=== PATIENT | male | born 1995 | race Caucasian/White ===

== ENCOUNTER 2020-02-05 12:30 | Emergency (ER) | payer OTHER, SELFPAY ==
[2020-02-05 12:40] VITALS: BP 146/93; PULSE 76; RESP 16; TEMP 36.6; O2SAT 100; BMI 29.7
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
--- NOTE | 2020-02-05 13:50 | PC.NURSE ---
Lac irrigated with 300ml sterile water and suture tray set up at bedside
[2020-02-05] MEDS: LIDO 1%/SOD BICARB 8.4% (10ML) 10 ML SYRINGE INJ (13:54)
[2020-02-05] MEDS: BACITRACIN OINT 0.9 GM PCKT 1 APPLIC TOP (14:40)
== END 2020-02-05 14:44 | disposition home or self-care (01) ==
PROVIDERS: Emergency Provider Student in an Organized Health Care Education/Training Program
DX: S01.81XA Laceration without foreign body of other part of head, initial encounter (principal); W22.8XXA Striking against or struck by other objects, initial encounter
CPT/HCPCS: 12011; 99283

== ENCOUNTER 2020-04-30 23:01 | Emergency (ER) | payer OTHER, SELFPAY ==
[2020-04-30 23:05] VITALS: BP 156/92; PULSE 77; RESP 18; TEMP 36.9; O2SAT 99
[2020-04-30] MEDS: PROPARACAINE 0.5% OPHTH SOL 1 DROPS EYE-RIGHT (23:11)
[2020-04-30] MEDS: FLUORESCEIN 1 MG STRIP EYE-RIGHT (23:11)
--- NOTE | 2020-04-30 23:11 | ED.EYEPROB ---
HPI - Eye Problem General Chief complaint: Eye Problems Stated complaint: RIGHT EYE SWELLING Time Seen by Provider: 04/30/20 23:02 Source: patient Mode of arrival: Ambulatory Limitations: no limitations History of Present Illness HPI Narrative: 24M daily smoker with noncontributory medical history presents with a chief complaint of relatively sudden onset right eye irritation followed by swelling of the upper lid. He denies any injury or history of the same. He does not wear contacts. He denies any recent welding, exposure to UV light or other. He has not been ill and denies runny nose, sneezing, cough. He denies any change in vision. He complains more of irritation tahn pain and states it does not feel deep. He tried to look for a foreign body but did not see one. MD chief complaint: eye pain and eye redness Onset (ago): hour(s) Onset description: sudden Duration: constant Location: right eye Eye Symptoms: pain, foreign body sensation and itching Place: home Severity: mild If Pain, Quality: throbbing Associated symptoms: none Treatments Prior to Arrival: none Related Data Patient tetanus UTD: Yes Allergies Allergy/AdvReac Type Severity Reaction Status Date / Time No Known Drug Allergies Allergy Verified 02/05/20 12:40 Review of Systems Constitutional Constitutional: Denies chills, Denies fatigue, Denies fever(s), Denies frequent falls, Denies lethargy and Denies weakness Eyes Eyes: Denies change in vision, Denies eye discharge, Reports irritation, Reports itchy eyes and Denies loss of vision ENT Ears, Nose, Mouth, and Throat: Denies change in voice, Denies dizziness, Denies neck pain, Denies sore throat and Denies throat swelling Cardiovascular Cardiovascular: Denies chest pain, Denies irregular heart rhythm, Denies lightheadedness, Denies palpitations, Denies dyspnea, Denies dyspnea on exertion and Denies orthopnea Respiratory Respiratory: Denies cough, Denies dyspnea, Denies dyspnea on exertion and Denies wheezing Gastrointestinal Gastrointestinal: Denies abdominal pain, Denies change in bowel habits, Denies diarrhea, Denies nausea and Denies vomiting Musculoskeletal Musculoskeletal: Denies neck pain and Denies numbness Integumentary/Breasts Skin/Breast: Denies pruritus, Denies erythema, Denies rash and Denies wounds Neurologic Neurologic: Denies behavioral changes, Denies confusion, Denies dizziness, Denies frequent falls, Denies loss of vision, Denies numbness and Denies weakness Psychiatric Psychiatric: Denies anxiety, Denies behavioral changes, Denies confusion, Denies depression, Denies homicidal ideation and Denies suicidal ideation Endocrine Endocrine: Denies fatigue, Denies flushing and Denies palpitations Hematologic/Lymphatic Hematologic/Lymphatic: Denies easy bruising Allergic/Immunologic Allergic/Immunologic: Denies urticaria, Reports itchy eyes, Denies throat swelling and Denies wheezing Patient History Social History Smoking Status: Current every day smoker Smoking Status: Current every day smoker tobacco type: vaping alcohol intake frequency: a few times a month Substance Use Type: does not use Exam Narrative Exam Narrative: GEN: AOx3 and in mild distress EYES: Pupils are equal, round, and reactive to light and accommodation. Extraoccular muscles are intact bilaterally. Mild R eye erythema, with some upper lid swelling and lower scleral chemosis. Near complete resolution of symptoms after use of numbing drop. No FB noted, upper lid everted. No dye uptake under UV lamp. CHEST: Lungs are clear to auscultation bilaterally and free of wheezes, rales, or rhonchi. Heart rate is regular rhythm, there are no murmurs, clicks, rubs, or gallops. There is no chest wall tenderness. ABD: Abdomen is soft and nontender. There is no guarding or rebound. Bowel sounds are normal in all 4 quadrants. There is no mass or organomegaly. EXT: Full painless ROM of all extremities with no loss of sensation or strength. SKIN: Warm, pink, and dry. No erythema or rash Initial Vital Signs Initial Vital Signs: Vital Signs Temperature 98.4 F 04/30/20 23:05 Pulse Rate 77 04/30/20 23:05 Respiratory Rate 18 04/30/20 23:05 Blood Pressure 156/92 H 04/30/20 23:05 Pulse Oximetry 99 04/30/20 23:05 Course Orders Ordered: Discontinued Medications Fluorescein Sodium (Ful-Rachelle) 1 mg EYE-RIGHT NOW ONE Stop: 04/30/20 23:06 Last Admin: 04/30/20 23:11 Dose: 1 mg Documented by: Ofloxacin (Ocuflox) 1 bottle MISC SEEINSTR ONE Stop: 04/30/20 23:22 Proparacaine HCl (Parcaine 0.5% Ophth Joi) 1 drops EYE-RIGHT NOW ONE Stop: 04/30/20 23:06 Last Admin: 04/30/20 23:11 Dose: 1 drop Documented by: Vital Signs Vital signs: Vital Signs - 8 hr 04/30/20 23:05 Temperature 98.4 F Pulse Rate 77 Respiratory Rate 18 Blood Pressure 156/92 H Pulse Oximetry 99 Discharge Plan Departure Patient Disposition: Home Clinical Impression: Chemosis of conjunctiva Qualifiers: Laterality: right Qualified Code(s): H11.421 - Conjunctival edema, right eye Instructions: DI for Eye Pain Activity Restrictions/Additional Instructions: *You have been diagnosed with [right eye irritation and chemosis] *What to do: *Take medications as directed *Follow up with Ophthalmology in 2-3 days, call for an appointment. Let them know you were seen in the Emergency Department and that we ask that you be seen in follow up *Return to ER if you should have any new, worsening or concerning symptoms Referrals: Ellis Angel MD [Physician] -
[2020-04-30] MEDS: OFLOXACIN 0.3% OPHTH PREPACK 1 BOTTLE MISC (23:28)
== END 2020-04-30 23:31 | disposition home or self-care (01) ==
PROVIDERS: Emergency Provider Emergency Medicine
DX: H11.421 Conjunctival edema, right eye (principal)
CPT/HCPCS: 99282